=== PATIENT | female | born 1965 | race Caucasian/White ===

== ENCOUNTER 2018-07-15 08:44 | Emergency (ER) | payer MEDICARE ==
[~2018-07-15] VITALS: Ht 162.6 cm; Wt 117.0 kg
[~2018-07-15 08:44] MED LIST: B COMPLEX; B-122500 MCG SL; CLONAZEPAM 0.50.5 M1 PO; CLONAZEPAM0.125 MG PO; FLEXERIL PO; FLORINEF ACETA0.1 MG PO; IRON256 MG; KLONOPIN; LAMICTAL XR200 MG PO; LAMICTAL100 MG PO; LIDODERM 5%1 PATCH TOP; LUVOX CR100 MG PO; LYRICA 50 MG50 MG; LYRICA 50 MG50 MG PO; LYRICA100 MG PO; MULTI VITAMIN1 EACH PO; NORCO 5-325 TA1 EAC1 PO; PANTOPRAZOLE SO40 M1 PO; PROTONIX40 M2 PO; RISPERDAL 3 MG T3 M1 PO; RISPERDAL4 MG PO; SIMVASTATIN40 MG PO; STOOL SOFTENER1 EAC2 PO; TRAZODONE HCL50 MG PO; TUMS PO; VENLAFAXINE HC150 M1 PO; VICODIN 5-3001 EACH PO; ZOCOR40 MG PO; ZOLPIDEM TARTRA10 MG PO
[2018-07-15] MEDS ORDERED: CLONAZEPAM 0.50.5 M1 PO (09:00)
[2018-07-15] MEDS ORDERED: EFFEXOR 5050 MG/1 T1 PO (09:00)
[2018-07-15] MEDS ORDERED: MOBIC7.5 M1 PO (09:00)
[2018-07-15] MEDS ORDERED: DOXYCYCLINE 10100 MG PO (09:14)
[2018-07-15 09:40] VITALS: BP 120/58
== END 2018-07-15 09:40 | disposition home or self-care (01) ==
LOC: M.ERS 08:44
DX: J18.9 Pneumonia, unspecified organism (principal); I95.9 Hypotension, unspecified; F31.9 Bipolar disorder, unspecified; F42.9 Obsessive-compulsive disorder, unspecified; M19.90 Unspecified osteoarthritis, unspecified site; E78.00 Pure hypercholesterolemia, unspecified; Z88.1 Allergy status to other antibiotic agents; Z90.49 Acquired absence of other specified parts of digestive tract

== ENCOUNTER → 2020-12-01 | Outpatient (CLI) | payer OTHER, MEDICAID ==
[~2020-12-01] MED LIST changes: +DOXYCYCLINE 10100 MG PO; +EFFEXOR 5050 MG/1 T1 PO; +MOBIC7.5 M1 PO
== END ==
LOC: M.LAB 12:18
PROVIDERS: ATTEND Orthopaedic Surgery
DX: Z01.812 Encounter for preprocedural laboratory examination (principal); Z20.822 Contact with and (suspected) exposure to COVID-19